=== PATIENT | female | born 1990 | race African-American/Black ===

== ENCOUNTER 2022-02-05 07:20 | Inpatient (IN) | payer OTHER ==
[2022-02-05] MEDS ORDERED: DINOPROSTONE 10 MG VAGINAL SUPPOSITORY VG ONE (08:26)
[2022-02-05 09:02] VITALS: BMI 38.6
[2022-02-05] MEDS: ELECTROLYTE-148 SOLN 1,000 ML IV SCH ×2 (10:00→17:00)
[2022-02-05] MEDS ORDERED: BUTORPHANOL TARTRATE 2 MG/ML VIAL ONE (15:36)
[2022-02-05] MEDS ORDERED: PROMETHAZINE HCL 25 MG/1 ML VIAL ONE (15:36)
[2022-02-05] MEDS ORDERED: PROMETHAZINE HCL 25 MG/1 ML VIAL IVPB ONE (16:00)
[2022-02-05] MEDS ORDERED: BUTORPHANOL TARTRATE 2 MG/ML VIAL IVPB ONE (16:00)
[2022-02-05] MEDS ORDERED: FENTANYL/BUPIVACAINE/NS/PF - PCEA - 50 ML DISP.SYRIN EP ONE (22:32)
[2022-02-06] MEDS: FENTANYL/BUPIVACAINE/NS/PF - PCEA - 50 ML DISP.SYRIN EP SCH ×3 (02:30→12:05)
[2022-02-06] MEDS ORDERED: NALOXONE HCL 0.4 MG/ML VIAL IVPUSH PRN (03:04)
[2022-02-06] MEDS ORDERED: OXYTOCIN 30 UNITS in 0.9% NS 30 UNIT/500 ML INFUS.BAG IVPB SCH (05:15)
[2022-02-06] MEDS ORDERED: FENTANYL/BUPIVACAINE/NS/PF - PCEA - 50 ML DISP.SYRIN EP ONE ×2 (07:22→12:05)
[2022-02-06] MEDS ORDERED: ceFAZolin SODIUM 1 GM VIAL ONE ×2 (15:55→20:57)
[2022-02-06] MEDS ORDERED: METHYLERGONOVINE MALEATE 0.2 MG/1 ML AMP IM PRN (16:10)
[2022-02-06] MEDS ORDERED: ACETAMINOPHEN 325 MG TABLET (FP) PO PRN ×2 (16:10→19:07)
[2022-02-06] MEDS ORDERED: OXYTOCIN 20 UNITS in 0.9% NS 20 UNIT/1,000 ML INFUS.BAG IV SCH (16:15)
[2022-02-06] MEDS ORDERED: KETOROLAC TROMETHAMINE 30 MG/1 ML VIAL ONE (16:41)
[2022-02-06] MEDS ORDERED: MIDAZOLAM HCL 2 MG/2 ML SINGLE DOSE VIAL ONE (16:50)
[2022-02-06] MEDS ORDERED: OXYTOCIN 10 UNITS/ML VIAL ONE (17:21)
[2022-02-06] MEDS ORDERED: ONDANSETRON 4 MG/2 ML VIAL ONE (17:21)
[2022-02-06] MEDS ORDERED: CEFAZOLIN 1 GM in DEXTROSE 5%-WATER - 50 ML IVPB SCH (18:00)
[2022-02-06] MEDS ORDERED: ONDANSETRON 4 MG/2 ML VIAL IVPUSH PRN (19:07)
[2022-02-06] MEDS ORDERED: IBUPROFEN 600 MG TABLET (FP) PO PRN (19:07)
[2022-02-06] MEDS: ELECTROLYTE-148 SOLN 1,000 ML IV SCH (20:39)
[2022-02-06] MEDS ORDERED: DEXTROSE 5%-WATER - 50 ML IVPB ONE (20:57)
[2022-02-06] MEDS: CEFAZOLIN 1 GM in DEXTROSE 5%-WATER - 50 ML IVPB SCH (21:08)
[2022-02-07] MEDS ORDERED: oxyCODONE HCL 5 MG TABLET PO PRN ×2 (04:10)
[2022-02-07] MEDS ORDERED: ceFAZolin SODIUM 1 GM VIAL ONE ×2 (04:52→12:04)
[2022-02-07] MEDS ORDERED: DEXTROSE 5%-WATER - 50 ML IVPB ONE ×2 (04:52→12:04)
[2022-02-07] MEDS: CEFAZOLIN 1 GM in DEXTROSE 5%-WATER - 50 ML IVPB SCH ×2 (05:00→12:30)
[2022-02-07] MEDS: ENOXAPARIN NA (PORCINE) 40 MG/0.4 ML DISP.SYRIN SQ SCH (09:07)
[2022-02-07 09:47] LABS: BASO % 0.3 % (0-2.0); EOS % 0.1 % (0-4.5); HEMATOCRIT 27.8 % (32.4-45.2); HEMOGLOBIN 9.2 GM/dL (10.7-15.3); LYMPH % 16.2 % (8-40); MCH 30.5 pg (25.7-33.7); MCHC 33.1 g/dl (32.0-36.0); MEAN CELL VOLUME 92.2 fl (80-96); MEAN PLT VOLUME 8.8 fl (7.5-11.1); MONO % 6.5 % (3.8-10.2); NEUT % 76.9 % (42.8-82.8); PLATELET COUNT 317 10^3/uL (134-434); RBC 3.01 M/mm3 (3.60-5.2); RDW 13.3 % (11.6-15.6); WHITE BLOOD COUNT 17.4 K/mm3 (4.0-10.0)
[2022-02-07] MEDS: SIMETHICONE 80 MG TAB.CHEW (FP) PO PRN (16:08)
[2022-02-07] MEDS: IBUPROFEN 600 MG TABLET (FP) PO PRN (16:08)
[2022-02-07] MEDS ORDERED: BISACODYL 10 MG SUPP.RECT RC PRN (16:10)
[2022-02-08] MEDS: IBUPROFEN 600 MG TABLET (FP) PO PRN ×3 (04:24→21:04)
[2022-02-08] MEDS: SIMETHICONE 80 MG TAB.CHEW (FP) PO PRN ×3 (04:24→21:04)
[2022-02-08] MEDS: ENOXAPARIN NA (PORCINE) 40 MG/0.4 ML DISP.SYRIN SQ SCH (09:56)
[2022-02-08 21:50] VITALS: PULSE 91
[2022-02-09 08:00] LABS: BASO % 0.6 % (0-2.0); EOS % 1.8 % (0-4.5); HEMATOCRIT 25.8 % (32.4-45.2); HEMOGLOBIN 8.6 GM/dL (10.7-15.3); LYMPH % 23.6 % (8-40); MCH 30.9 pg (25.7-33.7); MCHC 33.2 g/dl (32.0-36.0); MEAN CELL VOLUME 93.2 fl (80-96); MEAN PLT VOLUME 8.5 fl (7.5-11.1); MONO % 5.9 % (3.8-10.2); NEUT % 68.1 % (42.8-82.8); PLATELET COUNT 358 10^3/uL (134-434); RBC 2.77 M/mm3 (3.60-5.2); RDW 14.1 % (11.6-15.6); WHITE BLOOD COUNT 10.5 K/mm3 (4.0-10.0)
[2022-02-09] MEDS: IBUPROFEN 600 MG TABLET (FP) PO PRN (08:02)
[2022-02-09 09:05] VITALS: BP 123/80; TEMP 98.4
[2022-02-09] MEDS: ENOXAPARIN NA (PORCINE) 40 MG/0.4 ML DISP.SYRIN SQ SCH (09:21)
== END 2022-02-09 13:30 | disposition home or self-care (01) | DRG 540 ==
LOC: UNDOADMIN 07:20 → JLDR 07:20 → J3W 02-06 19:55 → JLDR 02-06 20:30 → J3W 02-06 20:30
PROVIDERS: ADMIT Obstetrics & Gynecology; ATTEND Obstetrics & Gynecology
PROC: 3E0P7VZ Introduction of Hormone into Female Reproductive, Via Natural or Artificial Opening (ICD-10-PCS; 2022-02-05)
PROC: 10D00Z1 Extraction of Products of Conception, Low, Open Approach (ICD-10-PCS; principal; 2022-02-06)
DX: O48.0 Post-term pregnancy (principal); O62.9 Abnormality of forces of labor, unspecified; O61.0 Failed medical induction of labor; O33.9 Maternal care for disproportion, unspecified; O99.214 Obesity complicating childbirth; E66.9 Obesity, unspecified; O34.13 Maternal care for benign tumor of corpus uteri, third trimester; D25.9 Leiomyoma of uterus, unspecified; Z3A.41 41 weeks gestation of pregnancy; Z37.0 Single live birth
CPT/HCPCS: 36415; 85025; 88307-TC